=== PATIENT | male | born 1975 | race Caucasian/White ===

== ENCOUNTER 2016-07-24 21:59 | Emergency (ER) | payer SELFPAY ==
[2016-07-24] MEDS ORDERED: Lidocaine 2% 20ml Vial IP ONE (22:27)
[2016-07-24] MEDS ORDERED: DIPH,PERTUSS(ACELL),TET VAC/PF 0.5 ML DISP.SYRIN IM ONE (22:27)
[2016-07-24] MEDS ORDERED: CEPHALEXIN 250 MG CAPSULE PO ONE (22:28)
[2016-07-24] MEDS ORDERED: PHARMACY KEY 1 EACH EACH MC ONE (22:32)
[2016-07-24] MEDS ORDERED: IBUPROFEN 400 MG TABLET PO ONE (22:40)
--- NOTE | 2016-07-24 23:24 | Diagnostic Imaging Report ---
JAMEEL CLAY [facility] [address] [facility].[address] [address] Report Submission Date: Jul 24, 2016 11:19:09 PM CDT Patient Study Name: PRANAV CABALLERO Date: Jul 24, 2016 10:58:42 PM CDT Modality Type: CR Gender: M Description: FACIAL BONES : 73 Institution: [facility] Physician: JAMEEL CLAY Facial bones, 5 images History: Facial injury Findings: No fracture or abnormal bone production destruction identified. Impression: Normal. Electronically signed on Jul 24, 2016 11:19:09 PM CDT by: Ermias CABRAL
[2016-07-24] MEDS ORDERED: HYDROcodone /APAP 5/325 1 EACH TABLET PO ONE (23:43)
--- NOTE | 2016-07-25 01:22 | ED Physician Documentation ---
General Adult - HISTORIAN Historian: patient - HPI Stated Complaint: lip laceration Chief Complaint: Laceration/Recheck/Suture Additional Information: was fixing a tire and tire iron slipped and hit him in the face Onset: minutes (20) Timing: still present Severity: moderate Modifying Factors: none Context: as above Quality: moderate Location: face Further Comments: no Last known Well Date: 07/24/16 Last Known Well Time: 21:30 - ROS CONST: no problems EYES/ENT: none CVS/RESP: none GI/: none MS/SKIN/LYMPH: other (lower lip laceration) NEURO/PSYCH: denies: headache, fainting, dizziness, tingling, numbness, difficulty walking, difficulty with speech, anxiety - PAST HX Past History: hypertension Other History: diabetes Type 2 Surgeries/Procedures: other (whipple procedure) Immunizations: UTD Allergies/Adverse Reactions: Allergies Allergy/AdvReac Type Severity Reaction Status Date / Time No Known Drug Allergies Allergy Verified 07/24/16 22:40 Home Medications: Ambulatory Orders Medication Instructions Recorded Insulin NPH Hum/Reg Insulin Hm 50 unit SQ 07/24/16 [Humulin 70/30 Kwikpen] - SOCIAL HX Smoking History: cigarettes Alcohol Use: occasionally Drug Use: none - FAMILY HX Family History: No - VITAL SIGNS Vital Signs: Vital Signs Temp Pulse Resp BP Pulse Ox 98 F 90 16 121/91 97 07/24/16 22:00 07/24/16 22:00 07/24/16 22:00 07/24/16 22:00 07/24/16 22:00 - REVIEWED ASSESSMENTS Nursing Assessment Reviewed: Yes Vitals Reviewed: Yes Procedures Wound Location: face Wound Length: 3 cm Wound's Depth, Shape: into muscle, irregular Wound Explored: no foreign body removed Betadine Prep?: No (sureclestephanie) Anesthesia: 2% Lidocaine Volume of Anesthetic: 8 cc Wound Debrided: none Wound Repaired With: sutures Suture Size/Type: 6:0 Number of Sutures: 8 Layer Closure?: No Sterile Dressing Applied?: No Splint Applied?: No Sling Applied?: No Progress - Results/Orders Results/Orders: facial bones x-ray ordered - Progress Progress: pt stable entire time in er, adult tetanus administrered and 1000 mg keflex, 800 mg motrin and vicodin 10/650 given p.o. Critical Care Note - Critical Care Note Total Time (mins): 0 ED Results Lab/Radiology - Lab Results Lab Results: none taken - Radiology Radiology Impressions: x-ray facial bones neg - Orders Orders: ED Orders Category Date Time Status FACIAL BONES 3 VIEWS OR MORE [RAD] Stat Exams 07/24/16 Completed Cephalexin [Keflex] Med 07/24/16 22:28 Discontinued 1,000 mg PO NOW ONE Chem Sticks Med 07/25/16 07:30 Ordered 1 each CHEMQID Diph,Pertuss(Acell),Tet Vac/Pf [Adacel] Med 07/24/16 22:27 Discontinued 0.5 ml IM .ONCE ONE HYDROcodone /APAP 5/325 [[place] 5/325] Med 07/24/16 23:43 Discontinued 2 each PO NOW ONE Ibuprofen [Advil] Med 07/24/16 22:40 Discontinued 800 mg PO NOW ONE Lidocaine 2% 20ml Vial [Xylocaine] Med 07/24/16 22:27 Discontinued 20 mg IP NOW ONE [facility] 07/24/16 22:32 Discontinued 1 each [facility] .STK-MED ONE General Adult Physical Exam - PHYSICAL EXAM GENERAL APPEARANCE: moderate distress EENT: eye inspection normal, ENT inspection normal, pharynx normal, no signs of dehydration, CATHY, no nystagmus, TM's nml NECK: normal inspection, thyroid normal, supple RESPIRATORY: no resp distress, chest non-tender, breath sounds normal CVS: reg rate & rhythm, heart sounds normal, equal pulses, no murmur, no gallop , PMI nml, no JVD, no friction rub ABDOMEN: soft, no organomegaly, no distension, non-tender BACK: normal inspection, no CVA tenderness SKIN: warm/dry, other (laceration left upper lip through zak border) EXTREMITIES: non-tender, normal range of motion, no evidence of injury, no edema NEURO: oriented X3, CN's nml as tested, motor nml, sensation nml, cognition normal Discharge Clincal Impression: Laceration of lip Qualifiers: Encounter type: initial encounter Qualified Code(s): S01.511A - Laceration without foreign body of lip, initial encounter Home Medications: Ambulatory Orders Insulin NPH Hum/Reg Insulin Hm [Humulin 70/30 Kwikpen] 50 unit SQ 07/24/16 Comments: discharged in stable condition with scripts for vicodin 10/325 #10 1 p.o. qid prn pain and keflex 500 mg #28 2 p.o. bid Condition: Stable Disposition: 01 HOME, SELF-CARE Decision to Admit: NO Decision Time: 23:50
[2016-07-25 01:59] VITALS: BP 123/72
== END 2016-07-24 23:50 | disposition home or self-care (01) ==
LOC: ED 21:59
DX: S01.511A Laceration without foreign body of lip, initial encounter (principal); X58.XXXA Exposure to other specified factors, initial encounter; Y93.9 Activity, unspecified; Y99.9 Unspecified external cause status; F17.210 Nicotine dependence, cigarettes, uncomplicated; Z23 Encounter for immunization
CPT/HCPCS: 70150; 90715; A9270; 12013; 90471; 99283; 99284

== ENCOUNTER 2019-02-03 14:38 | Emergency (ER) | payer SELFPAY ==
--- NOTE | 2019-02-03 14:54 | ED Physician Documentation ---
General Adult - HISTORIAN Historian: patient - HPI Stated Complaint: Back pain Chief Complaint: General Adult Onset: hours Timing: still present Severity: moderate Further Comments: yes (back pain) - ROS CONST: no problems EYES/ENT: none CVS/RESP: none GI/: none MS/SKIN/LYMPH: other (back pain) - PAST HX Past History: other (DM, HTN, ortho surgery) Allergies/Adverse Reactions: Allergies Allergy/AdvReac Type Severity Reaction Status Date / Time No Known Drug Allergies Allergy Verified 02/03/19 14:49 Home Medications: Ambulatory Orders Medication Instructions Recorded Insulin NPH Hum/Reg Insulin Hm 50 unit SQ DAILY 07/24/16 [Humulin 70/30 Kwikpen] Lisinopril [Zestril] 1 tab PO BID 02/03/19 - SOCIAL HX Smoking History: cigarettes - FAMILY HX Family History: No - VITAL SIGNS Vital Signs: Vital Signs Temp Pulse Resp BP Pulse Ox 89 15 151/95 98 02/03/19 14:40 02/03/19 14:40 02/03/19 14:40 02/03/19 14:40 - REVIEWED ASSESSMENTS Nursing Assessment Reviewed: Yes Vitals Reviewed: Yes Progress - Progress Progress: Toradol 30 mg IM Diazepam 10 mg IM improved General Adult Physical Exam - PHYSICAL EXAM GENERAL APPEARANCE: moderate distress NECK: normal inspection, supple RESPIRATORY: no resp distress, chest non-tender, breath sounds normal CVS: reg rate & rhythm, heart sounds normal ABDOMEN: soft, no organomegaly, normal bowel sounds BACK: normal inspection, other (DTR's wnl, lumbar paraspinal muscle spasm, no central tenderness) SKIN: warm/dry, normal color EXTREMITIES: non-tender, normal range of motion, no evidence of injury NEURO: oriented X3, motor nml, sensation nml Discharge Clincal Impression: back pain, muscle spasm Referrals: Primary Doctor,No [Primary Care Provider] - Condition: Good Disposition: 01 HOME, SELF-CARE Decision to Admit: NO Decision Time: 15:57
[2019-02-03] MEDS: KETOROLAC TROMETHAMINE 30 MG/1ML VIAL IM ONE (15:42)
[2019-02-03 16:03] VITALS: BP 136/72
== END 2019-02-03 16:01 | disposition home or self-care (01) ==
LOC: ED 14:38
DX: M62.830 Muscle spasm of back (principal)
CPT/HCPCS: 96372; 99282; 99284; J1885; J3360